=== PATIENT | male | born 1955 | race Caucasian/White ===

== ENCOUNTER 2017-09-06 06:39 | Inpatient (IN) | payer OTHER, SELFPAY ==
[2017-08-23 08:21] VITALS: BMI 31.9
[2017-09-06] VITALS (17 sets, daily range): BP systolic 111–149; BP diastolic 49–75; PULSE 43–67; RESP 14–20; TEMP 35.7–37.1; O2SAT 95–100; BMI 31.9
[2017-09-06] MEDS: LACTATED RINGERS 1,000 ML 42 ML IV (07:30)
--- NOTE | 2017-09-06 07:45 | PM.PREOP ---
Pre-operative Note Interval Note Pre-op Check: History & Physical Reviewed by Physician and Changes
[2017-09-06] MEDS: ACETAMINOPHEN 325 MG TABLET 975 MG PO (07:55)
[2017-09-06] MEDS: CELECOXIB 200 MG CAPSULE PO (07:55)
[2017-09-06] MEDS: CEFAZOLIN 2 GM/100 ML FROZ.PIGGY IV ×2 (07:58→16:27)
--- NOTE | 2017-09-06 08:45 | SUR.OPER ---
Supine on padded OR bed. Pillow under head, arms secured on padded armboards <90 degree abduction. Safety belt across torso. Non-operative leg secured with tape over blanket over lower leg. Operative leg secured in DeMayo/Maurice positioner. Foam padded brace at thigh of operative leg.
[2017-09-06] MEDS: BUPIVACAINE LIPOSOME 266 MG/20 ML VIAL INJ (08:51)
[2017-09-06] MEDS: BUPIVACAINE 0.25% W/ EPI 50 ML VIAL INJ (08:51)
[2017-09-06] MEDS: MORPHINE 4 MG/ML INJ INJ (08:52)
--- NOTE | 2017-09-06 09:51 | DI.RAD.S_ITS ---
PROCEDURE: XR KNEE RT 1TO2V INDICATIONS: post op total knee TECHNIQUE: 2 view(s) of the knee acquired. COMPARISON: None. FINDINGS: Bones: Patient is status post knee joint arthroplasty. Hardware components are in expected positions. Visualized bony structures are intact. Soft tissues: Overlying postoperative changes are noted. IMPRESSION: Normal alignment after right total knee arthroplasty. Dictated by: Jacob Puentes M.D. on 09/06/2017 at 10:38 Approved by: Jacob Puentes M.D. on 09/06/2017 at 10:38
--- NOTE | 2017-09-06 09:57 | P.OP_ITS ---
Operative Date/Time/Diagnoses - Date of procedure: 09/06/17 Time of procedure: 09:45 Pre-op diagnosis: Right knee osteoarthritis Post-op diagnosis: same Procedure & Clinicians Procedure: Right total knee replacement Same procedure as scheduled: Yes Indications: The patient has had progressively worsening right knee pain with radiographic changes consistent with arthritis. Non-operative management has failed and the patient has requested total knee replacement. The risks, benefits and alternatives to surgery were discussed with the patient prior to proceeding. Risks discussed included, but were not limited to, failure to relieve pain, stiffness, infection, nerve damage, deep venous thrombosis, pulmonary embolism, stroke, coma, heart attack, permanent paralysis and , as well as the potential need for eventual revision of the prosthetic. Surgeon: Aj Murdock Feeder Associate: Terra Welch Click Yes if Unassisted: No Anesthesia Type: General, Spinal and Local Operative Notes Findings: Tricompartmental osteoarthritis. Closure Type: primary Specimen(s): none sent Implants & Drains: Implants used in this procedure were manufactured by the [employer] and included the BCS II Journey total knee replacement with a size 6 Oxinium femoral component, a size 6 non porous tibial base plate, a 10 mm crosslinked polyethylene BCS II insert, and a 35 mm oval windy II patella. Applied: implant(s) Estimated Blood Loss (mL): 25 Blood products transfused: none Tourniquet time (min): 53 Procedure in detail: The patient was seen in the pre-operative area, where the patient identified the right knee as the operative site and this was marked with my initials. The patient received pre-operative antibiotics, and was taken to the operating room and placed on the operative table in the supine position. After satisfactory anesthesia, a aircraft time clerk out was performed. The right leg was encircled with a tourniquet about the proximal thigh, and the leg was prepared from the toes to the tourniquet with ChloroPrep in the usual fashion and draped through sterile drapes. The leg was elevated and exsanguinated with Eschmark bandage and the tourniquet inflated to 250 mmHg pressure. The knee was approached through an approximately 18 cm incision centered over the patella and carried into the knee through a medial parapatellar arthrotomy. The anterior osteophytes and soft tissues were removed. The rotational landmarks of Edward's line and the transepicondylar axis were marked on the femur with electrocautery, and intramedullary guide holes for the femur and tibia were created. The distal femoral cut was made in 6 degrees of valgus using the intramedullary guide at the primary cut setting. The proximal tibial cut was then made using the intramedullary guide, taking 7 mm of bone off the less involved medial side. The extension gap was checked and the rotation of the femoral component confirmed with the gap balancing system. The anterior, posterior and chamfer cuts were then made. The posterior osteophytes and soft tissues were then removed. The posterior capsule was injected with part of a mixture of 50 ml 0.25% Marcaine mixed with 20 ml Exparel and 4 mg of morphine for post-operative pain control. The remainder of this mixture was injected into the capsule and subcutaneous tissues during cement curing. The tibia was prepared with the rotation set by an extra medullary guide. Trial tibial and femoral components were then placed and the intercondylar notch cut through the femoral trial. Range of motion was 0-135 degrees, with good stability throughout the range. The patella was then cut to accommodate the patellar prosthetic. There was no need for a lateral release. The trials were then removed, and the femoral hole plugged with a bone plug. The bone was prepared with pulsatile lavage, and dried with a sponge. Cement was applied and the final prosthetics placed. Excess cement was removed during and after cement curing. After confirming there was no extruded cement posteriorly, the final tibial insert was placed. The knee was copiously irrigated and the tourniquet deflated. Hemostasis was obtained. The capsule was closed with interrupted # 2 polyester suture. The subcutaneous layer was closed with 3-0 Vicryl, and the skin with a running 3-0 V-Lock suture and SteriStrips. An Aquacel Ag dressing was applied and the patient was taken to recovery having tolerated the procedure well. Complications: none Condition: stable Disposition: PACU Plan for aftercare: The patient will be maintained on a standard total knee replacement protocol with weight bearing as tolerated. The patient will receive aspirin and sequential compression devices for DVT prophylaxis. The patient will be discharged home when safe for the home environment.
[2017-09-06] MEDS: ACETAMINOPHEN 325 MG TABLET 650 MG PO ×2 (11:09→18:41)
[2017-09-06] MEDS: LACTATED RINGERS 1,000 ML 125 ML IV ×2 (11:09→20:22)
[2017-09-06] MEDS: HYDROCODONE/ACET 5/325 TABLET 1 TAB PO ×2 (12:21→22:41)
--- NOTE | 2017-09-06 13:09 | PC.NURSE ---
Post-op: Arrived to room 218 approx 1030. Wide awake and alert, oriented X3. Denied any pain initially, but reported increasing pain as spinal wears off. Patient and family report he is very sensitive to pain meds, especially Oxycodone (he reportedly turned white and passed out after taking it). We tried Tylenol initially and patient reported only minimal, if any, pain relief. After long discussion we decided to try 1/2 tab Vicodin which he has tolerated without N/V or other complaint. Rates pain down to 4 from 6 in R operative knee. Ice packs refilled and in place. SCD's on, ankle waving encouraged. Tl wrap and dressing to R knee C/D/I, circulation/pulses and cap refill to BLE's WNL. SpO2 on RA 100%, cont pulse ox in place. IVF per order, site in R forearm WNL. He's able to make position changes in bed to relieve pressure, instructed to call for assist with larger position changes. Oriented to room and call light, encouraged to make needs known. Bed alarm on, call light in reach.
[2017-09-06] MEDS: METFORMIN HCL 500 MG TABLET PO (16:27)
--- NOTE | 2017-09-06 16:32 | PT.IIE ---
Current Diagnoses Bilateral primary osteoarthritis of knee (09/06/17) Surgery Performed Operation Date: 09/06/17 07:45 Actual Procedures p Total Knee Arthroplasty(Right) - Aj Murdock MD Surgical History (Last Updated 08/23/17 @ 09:21 by Winifred Henley RN) History of arthroscopy of both knees (Acute) History of arthroscopy of left shoulder (Acute) History of vasectomy (Acute) Medical History (Last Updated 08/23/17 @ 09:21 by Winifred Henley RN) Arthritis (Acute) Diabetes (Acute) Eczema (Acute) GERD (gastroesophageal reflux disease) (Acute) Gout (Acute) HTN (hypertension) (Acute) History of fracture of left ankle (Acute) History of fracture of right ankle (Acute) Hyperlipidemia (Acute) Kidney disease, chronic, stage III (GFR 30-59 ml/min) (Acute) Seasonal allergies (Acute) Sleep apnea with use of continuous positive airway pressure (CPAP) (Acute) Physical Therapy Inpatient Evaluation/Re-Eval M1 PT/OT-IP Prior Functional Status Start: 09/06/17 16:14 Freq: NEEDED Status: Active Protocol: Document 09/06/17 16:15 AB (Rec: 09/06/17 16:32 AB [id number]) Medical Review Prior Functional Status Medical History Reviewed Yes Mobility and Gait Pt stated that he is modified independent with all mobilities and ambulation using SPC outdoors, occasionally uses SPC indoors but most of the time without AD Social History Household Members spouse children Living Arrangements House Number of Floors (Floors) Two Floors Number of Stairs To Enter/Railing? 2 steps to enter with L deck/ patio post pt stays on main level of the house Home Environment Walk in Shower Home Equipment Front Wheel Walker Straight Cane Raised Toilet Seat Without Armrests Shower Seat without Backrest Employment Status Retired Additional Social History Comment spouse and daughters will assist pt at home M2 PT-IP Current Condition Start: 09/06/17 16:14 Freq: NEEDED Status: Active Protocol: Document 09/06/17 16:15 AB (Rec: 09/06/17 16:32 AB [id number]) Physical Therapy Current Condition Current Condition Evaluation Date 09/06/17 Treatment Diagnosis s/p R TKA Onset Date 09/06/17 Weight Bearing Status Weight Bearing Status Weight Bear as Tolerated M3 PT-IP Subjective Start: 09/06/17 16:14 Freq: NEEDED Status: Active Protocol: Document 09/06/17 16:15 AB (Rec: 09/06/17 16:32 AB [id number]) Subjective Physical Therapy Visit Type Type Initial Evaluation Visit Start Time 14:05 Visit Stop Time 14:58 Total Visit Minutes 53 Number of NE[facility] E[employer]ERN ARCHAEOLOGY LECTURER Visits 0 Physical Therapy Visit Comments Patient Comments pt agreeable to do therapy Therapy Pain Assessment Pain When Pain Assessed At Rest Pain Present Pain Present Pain Reported Location Right Knee Intensity 3 Scale Used Numeric (1 - 10) Pain Management Techniques Apply Cold Re-positioning M4 PT-IP Mobility and Gait Start: 09/06/17 16:14 Freq: NEEDED Status: Active Protocol: Document 09/06/17 16:15 AB (Rec: 09/06/17 16:32 AB [id number]) PT-Bed Mobility Assessment Supine to Sit Supine to Sit Standby Assistance Sit to Supine Sit to Supine Maximum Assistance PT-Transfer Assessment Sit to and From Stand Sit to and from Stand Moderate Assistance Equipment Transfer Assistive Device Gait Belt Front Wheeled Walker Orthotic/Prosthetic Devices or Brace: Yes Gait Assessment Gait Gait Assistance Required: Moderate Assistance Distance (Feet) (feet) 12 Able to Maintain Weight Bearing Status Yes During Gait Assistive Devices Assistive Device Gait Belt Front Wheeled Walker Orthotic/Prosthetic Devices or Brace: Yes Gait Deviations General Gait Pattern Antalgic Decreased Stride Length Decreased Feet Clearance Factors Limiting Gait Function Factors Limiting Gait Function Decreased Activity Tolerance Decreased Strength Pain Poor Balance Comments Gait Comments Pt has h/o L ankle fracture s/ p repair and has been using a L solid ankle brace for ~ 2 months. stated that he missed his f/u appointment for his ankle last tuesday. pt brought his ankle brace from home. pt with c/o dizziness during ambulation and has to sit back on EOB. BP prior to tx: 143/ 55 after ambulation: 113/53 PT-Balance Assessment Sitting Balance and Reactions Static Sitting Balance Ability Good Dynamic Sitting Balance Ability Good Standing Balance and Reactions Static Standing Balance Ability Fair Dynamic Standing Balance Ability Fair M5 PT-IP Objective Assessments Start: 09/06/17 16:14 Freq: NEEDED Status: Active Protocol: Document 09/06/17 16:15 AB (Rec: 09/06/17 16:32 AB [id number]) Orientation Orientation/Cognition Level of Alertness Alert Orientation Name Age Birthday Month Date Year Day of Week Place Situation Gross Range of Motion Lower Extremity ROM Assessment Right Impaired Strength Lower Extremity Strength Assessment Bilaterally Impaired Comments Strength Comments RLE weaker than LLE RLE 3+/5 LLE 4-/5 Sensation Assessment Sensation Sensation Description Numbness Comments Sensation Comments still c/o numbness on buttocks M6 PT-IP Treatment Start: 09/06/17 16:14 Freq: NEEDED Status: Active Protocol: Document 09/06/17 16:15 AB (Rec: 09/06/17 16:32 AB [id number]) Physical Therapy Treatment Exercises Exercises Ankle Pumps Quad Sets Education Education Provided Precautions Weight Bearing Status Post-Op Packet Safety M7 PT-IP Assessment and Plan Start: 09/06/17 16:14 Freq: NEEDED Status: Active Protocol: Document 09/06/17 16:15 AB (Rec: 09/06/17 16:32 AB [id number]) PT Summary Assessment and Plan Potential Rehabilitation Potential Good Status of Condition at Evaluation Evolving Summary Impairments Pain ROM Strength Balance Coordination Sensation Bed Mobility Transfers Gait Activity Tolerance Assessment Summary pt just had surgery this morning and with c/o dizziness during ambulation limiting mobility. will continue to assess but pt will likely progress during hospital stay. pt has his family to assist him at home. caregiver training will be conducted if appropriate and stair climbing training will be completed prior to d/c. Goals Bed Mobility Goal Standby Assistance Transfer Goal Standby Assistance Gait Goal Standby Assistance Gait Distance 100 Other Goals up/down 2 steps using FWW SBA Days to Meet Goals 3 Frequency of Treatment Frequency Of Treatment Twice a Day Treatment Plan Physical Therapy Treatment Plan Bed Mobility Training Transfer Training Gait Training Therapeutic Exercise Balance Retraining Post Op Education Discharge Planning Hot or Cold Pack Neuromuscular Re-ed Coordination Retraining Manual Therapy Other Recommendations and Next Treatment ambulation, caregiver training Focus , stair climbing Recommendations To Nursing Amount of Assist Needed 1 Person Assist Discharge Recommendations PT Discharge Recommendations Home with Assistance Outpatient PT Provider Visit Care Team Role Provider Type María Hester MD Family Provider Non-Staff Primary Care Provider Specialty: Medical Aj Murdock MD Admit Provider Physician Attending Provider Specialty: Orthopedic Surgery
[2017-09-06] MEDS: DOCUSATE 100 MG CAPSULE PO (20:23)
[2017-09-06] MEDS: FLUTICASONE 120 SPRAY/16 GM SPRAY.SUSP NASAL (20:23)
[2017-09-06] MEDS: ATORVASTATIN 20 MG TABLET PO (20:23)
[2017-09-06] MEDS: ASPIRIN EC 81 MG TABLET PO (20:23)
[2017-09-07] MEDS: CEFAZOLIN 2 GM/100 ML FROZ.PIGGY IV (00:51)
[2017-09-07] MEDS: LACTATED RINGERS 1,000 ML 125 ML IV (05:39)
[2017-09-07 05:58] LABS: Hematocrit 31.5 % (41-53); Hemoglobin 10.8 g/dL (13.5-17.5)
[2017-09-07] MEDS: HYDROCODONE/ACET 5/325 TABLET 1 TAB PO ×3 (06:07→16:26)
[2017-09-07 06:11] VITALS: BP 148/90; PULSE 64; RESP 16; TEMP 36.9; O2SAT 100
--- NOTE | 2017-09-07 07:37 | P.PN_ITS ---
Subjective Date Patient Seen: 09/07/17 Time Patient Seen: 07:33 Interval history: The patient is postop day 1 from a right total knee replacement. He has complaints of mild discomfort in the right thigh but minimal knee pain. He was able to get up with physical therapy and walk around the room yesterday afternoon but did get dizzy at the end of this. Exam Vital Signs (past 8 hours): Vital Signs - 8 hr 3 09/06/17 23:43 09/07/17 06:11 Temperature 98.7 F 98.5 F Pulse Rate 67 64 Respiratory Rate 16 16 Blood Pressure 149/56 H 148/90 H Pulse Oximetry 96 100 Pulse Oximetry 100 Oxygen Delivery Method Room Air Oxygen Flow Rate 0 Narrative Exam Narrative: On physical examination the right knee wound is dressed. There is no drainage on the bandage. Calf is soft. Light touch and motion are intact in the right lower extremity. Objective Labs Result Diagrams: 09/07/17 05:44 Labs: Laboratory Results - last 24 hr 09/07/17 05:44 Hgb 10.8 L Hct 31.5 L Assessment & Plan Post-op Postoperative Procedures Operation Date: 09/06/17 07:45 Actual Procedures Side Surgeon p Total Knee Arthroplasty Right Aj Murdock MD Postoperative day: 1 Postoperative status: doing well and anemia (The patient has a mild post hemorrhagic anemia. This is asymptomatic.) Postoperative plan: routine post-op care (The patient is doing well. We will have additional physical therapy today. If they make enough progress they can go home. If not they will be maintained in the hospital as an inpatient.) Time Spent With Patient less than 15 minutes Quality VTE Deep Vein Thrombosis/Pulmonary Embolism Present on Admission: No
[2017-09-07 07:50] VITALS: BP 141/57; PULSE 63; RESP 18; TEMP 36.6; O2SAT 97
--- NOTE | 2017-09-07 08:09 | PM.DS.1 ---
History of Present Illness Date Patient Seen: 09/07/17 Time Patient Seen: 08:09 Chief complaint: [id number] RIGHT TOTAL KNEE ARTHROPLASTY Narrative: Pain is mild. No fever chills. No nausea vomiting. Patient walked in room with physical therapy yesterday. Patient able to urinate. Patient feels ready to be discharged home. Patient's is home to the system. Discharge Providers Date of admission: 09/06/17 06:39 Primary care physician: María Hester MD Consults: 09/06/17 10:32 Consult to Discharge Planning Routine Comment: Consult to Physical Therapy Evaluate & Treat Comment: Physician Instructions: postop TKA protocol Discharge provider: Dimitris Menon PA-C Summary Discharge Diagnosis: Status post right total knee arthroplasty Hospital Course: patient has had progressively worsening right knee pain with radiographic changes consistent with arthritis. Non-operative management has failed and the patient has requested total knee replacement. The risks, benefits and alternatives to surgery were discussed with the patient prior to proceeding. Risks discussed included, but were not limited to, failure to relieve pain, stiffness, infection, nerve damage, deep venous thrombosis, pulmonary embolism, stroke, coma, heart attack, permanent paralysis and , as well as the potential need for eventual revision of the prosthetic. Surgeon: Aj Murdock Negative Stripper: Terra Welch Click Yes if Unassisted: No Anesthesia Type: General, Spinal and Local Patient underwent right total knee arthroplasty. Patient back in his room recovering well and is in stable condition. Patient has mild post hemorrhagic anemia. This is asymptomatic. Status at Discharge Functional status at discharge: uses cane/walker Overall status at discharge: other (Stable status post right total knee arthroplasty) Time Spent with Patient Less than 30 minutes Exam Vital Signs (past 8 hours): Vital Signs - 8 hr 09/07/17 06:11 Temperature 98.5 F Pulse Rate 64 Respiratory Rate 16 Blood Pressure 148/90 H Pulse Oximetry 100 Pulse Oximetry 100 Oxygen Delivery Method Room Air Oxygen Flow Rate 0 Narrative Exam Narrative: Patient is alert and oriented. Patient resting comfortably in bed in no apparent distress. Right knee dressing is clean, dry and intact. Neurovascular status is intact to the distal right lower extremity. Objective Labs Result Diagrams: 09/07/17 05:44 Labs: Laboratory Results - last 24 hr 09/07/17 05:44 Hgb 10.8 L Hct 31.5 L Discharge Plan Discharge Plan Patient Disposition: Home, Self-Care Discharge comment: DC today after PT Discharge Med Rec/Prescriptions Prescriptions: No Action metformin 500 mg Tablet 500 mg PO BID RF: 0 atorvastatin 20 mg Tablet 20 mg PO BEDTIME RF: 0 cetirizine [Zyrtec] 10 mg Tablet 10 mg PO DAILY PRN (Reason: Allergies) RF: 0 lisinopril 20 mg Tablet 20 mg PO QAM RF: 0 aspirin [Aspir-81] 81 mg Tablet,Delayed Release (Dr/Ec) 81 mg PO QAM RF: 0 ranitidine HCl 150 mg Capsule 150 mg PO BID RF: 0 fluticasone 50 mcg/actuation Hooks,Suspension 1 spray INTRANASAL BEDTIME RF: 0 atenolol 50 mg Tablet 50 mg PO QAM RF: 0 vitamin E 1,000 units PO DAILY RF: 0 ascorbic acid (vitamin C) 1,000 units PO DAILY RF: 0 Follow up/Referrals: Aj Murdock MD [Physician] - (Follow up 5-7 days with [facility]) María Hester MD [Primary Care Provider] - Provider Discharge Instructions Diet: Diet as Tolerated Activity: WBAT, [facility] protocol Cold/Heat Therapy: as needed Other treatments: Patient will continue aspirin b.i.d.. Tylenol 1000 mg 3 times daily Patient has prescription for pain medicine at home to be taken as directed. Wound Care Report to your healthcare provider any signs of infection, such as:: chills, fever, increased pain and unusual drainage Discharge Data Primary Care Provider: María Hester Attending Provider: Aj Murdock Admit Date/Time: 09/06/17 06:39 Quality VTE Deep Vein Thrombosis/Pulmonary Embolism Present on Admission: No
--- NOTE | 2017-09-07 08:13 | P.DS_ITS ---
History of Present Illness Date Patient Seen: 09/07/17 Time Patient Seen: 08:09 Chief complaint: [id number] RIGHT TOTAL KNEE ARTHROPLASTY Narrative: Pain is mild. No fever chills. No nausea vomiting. Patient walked in room with physical therapy yesterday. Patient able to urinate. Patient feels ready to be discharged home. Patient's is home to the system. Discharge Providers Date of admission: 09/06/17 06:39 Primary care physician: María Hester MD Consults: 09/06/17 10:32 Consult to Discharge Planning Routine Comment: Consult to Physical Therapy Evaluate & Treat Comment: Physician Instructions: postop TKA protocol Discharge provider: Dimitris Menon PA-C Summary Discharge Diagnosis: Status post right total knee arthroplasty Hospital Course: patient has had progressively worsening right knee pain with radiographic changes consistent with arthritis. Non-operative management has failed and the patient has requested total knee replacement. The risks, benefits and alternatives to surgery were discussed with the patient prior to proceeding. Risks discussed included, but were not limited to, failure to relieve pain, stiffness, infection, nerve damage, deep venous thrombosis, pulmonary embolism, stroke, coma, heart attack, permanent paralysis and , as well as the potential need for eventual revision of the prosthetic. Surgeon: Aj Murdock Picker / Packer: Terra Welch Click Yes if Unassisted: No Anesthesia Type: General, Spinal and Local Patient underwent right total knee arthroplasty. Patient back in his room recovering well and is in stable condition. Patient has mild post hemorrhagic anemia. This is asymptomatic. Status at Discharge Functional status at discharge: uses cane/walker Overall status at discharge: other (Stable status post right total knee arthroplasty) Time Spent with Patient Less than 30 minutes Exam Vital Signs (past 8 hours): Vital Signs - 8 hr 3 09/07/17 06:11 Temperature 98.5 F Pulse Rate 64 Respiratory Rate 16 Blood Pressure 148/90 H Pulse Oximetry 100 Pulse Oximetry 100 Oxygen Delivery Method Room Air Oxygen Flow Rate 0 Narrative Exam Narrative: Patient is alert and oriented. Patient resting comfortably in bed in no apparent distress. Right knee dressing is clean, dry and intact. Neurovascular status is intact to the distal right lower extremity. Objective Labs Result Diagrams: 09/07/17 05:44 Labs: Laboratory Results - last 24 hr 09/07/17 05:44 Hgb 10.8 L Hct 31.5 L Discharge Plan Discharge Plan Patient Disposition: Home, Self-Care Discharge comment: DC today after PT Discharge Med Rec/Prescriptions Prescriptions: No Action metformin 500 mg Tablet 500 mg PO BID RF: 0 atorvastatin 20 mg Tablet 20 mg PO BEDTIME RF: 0 cetirizine [Zyrtec] 10 mg Tablet 10 mg PO DAILY PRN (Reason: Allergies) RF: 0 lisinopril 20 mg Tablet 20 mg PO QAM RF: 0 aspirin [Aspir-81] 81 mg Tablet,Delayed Release (Dr/Ec) 81 mg PO QAM RF: 0 ranitidine HCl 150 mg Capsule 150 mg PO BID RF: 0 fluticasone 50 mcg/actuation Yeoman,Suspension 1 spray INTRANASAL BEDTIME RF: 0 atenolol 50 mg Tablet 50 mg PO QAM RF: 0 vitamin E 1,000 units PO DAILY RF: 0 ascorbic acid (vitamin C) 1,000 units PO DAILY RF: 0 Follow up/Referrals: Aj Murdock MD [Physician] - (Follow up 5-7 days with [facility]) María Hester MD [Primary Care Provider] - Provider Discharge Instructions Diet: Diet as Tolerated Activity: WBAT, [facility] protocol Cold/Heat Therapy: as needed Other treatments: Patient will continue aspirin b.i.d.. Tylenol 1000 mg 3 times daily Patient has prescription for pain medicine at home to be taken as directed. Wound Care Report to your healthcare provider any signs of infection, such as:: chills, fever, increased pain and unusual drainage Discharge Data Primary Care Provider: María Hester Attending Provider: Aj Murdock Admit Date/Time: 09/06/17 06:39 Quality VTE Deep Vein Thrombosis/Pulmonary Embolism Present on Admission: No
[2017-09-07] MEDS: DOCUSATE 100 MG CAPSULE PO ×2 (08:31→21:26)
[2017-09-07] MEDS: ASPIRIN EC 81 MG TABLET PO ×2 (08:31→21:25)
[2017-09-07] MEDS: METFORMIN HCL 500 MG TABLET PO ×2 (08:31→17:07)
[2017-09-07] MEDS: LISINOPRIL 20 MG TABLET PO (08:31)
[2017-09-07] MEDS: ATENOLOL 50 MG TABLET PO (08:31)
[2017-09-07] MEDS: ASCORBIC ACID 500 MG TABLET 1000 MG PO (08:31)
[2017-09-07] MEDS: ONDANSETRON 4 MG ODT PO ×2 (09:19→16:09)
[2017-09-07] MEDS: hydrOXYzine pamoate 25 MG CAPSULE PO (10:38)
--- NOTE | 2017-09-07 10:40 | PT.IPTN ---
Current Diagnoses Bilateral primary osteoarthritis of knee (09/06/17) Surgery Performed Operation Date: 09/06/17 07:45 Actual Procedures p Total Knee Arthroplasty(Right) - Aj Murdock MD Physical Therapy Treatment Note M2 PT-IP Current Condition Start: 09/06/17 16:14 Freq: NEEDED Status: Active Protocol: Document 09/06/17 16:15 AB (Rec: 09/06/17 16:32 AB [id number]) Physical Therapy Current Condition Current Condition Evaluation Date 09/06/17 Treatment Diagnosis s/p R TKA Onset Date 09/06/17 Weight Bearing Status Weight Bearing Status Weight Bear as Tolerated M3 PT-IP Subjective Start: 09/06/17 16:14 Freq: NEEDED Status: Active Protocol: Document 09/07/17 09:38 CLB (Rec: 09/07/17 10:40 CLB [id number]) Subjective Physical Therapy Visit Type Type Treatment Note Visit Start Time 09:38 Visit Stop Time 10:20 Total Visit Minutes 42 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 Therapy Pain Assessment Pain When Pain Assessed During Mobility Pain Present Pain Present Pain Reported Location Right Knee Intensity 5 Scale Used Numeric (1 - 10) Pain Management Techniques Apply Cold Re-positioning M4 PT-IP Mobility and Gait Start: 09/06/17 16:14 Freq: NEEDED Status: Active Protocol: Document 09/07/17 09:38 CLB (Rec: 09/07/17 10:40 CLB [id number]) PT-Bed Mobility Assessment Supine to Sit Supine to Sit Standby Assistance Scooting Scooting to Edge of Bed Standby Assistance PT-Transfer Assessment Sit to and From Stand Sit to and from Stand Contact Guard Assistance Equipment Transfer Assistive Device Gait Belt Front Wheeled Walker Orthotic/Prosthetic Devices or Brace: Yes Transfers Transfer Destination Chair Wheelchair Transfer Ability Level of Assist Contact Guard Assistance Comments Mobility Comments Pt improving with bed mobility and able to use SPC to hook RLE OOB with Min A to support leg until foot is on floor. Daughter and assisted pt. Gait Assessment Gait Gait Assistance Required: Contact Guard Assist Distance (Feet) (feet) 60 Able to Maintain Weight Bearing Status Yes During Gait Assistive Devices Assistive Device Gait Belt Front Wheeled Walker Orthotic/Prosthetic Devices or Brace: Yes Gait Deviations General Gait Pattern Antalgic Decreased Stride Length Decreased Feet Clearance Factors Limiting Gait Function Factors Limiting Gait Function Decreased Activity Tolerance Decreased Strength Pain Poor Balance Comments Gait Comments Pt wore ankle brace and shoes for ambulation. Pt increased distance with no c/o dizziness until returning to room in . BP was 103/54, then returned to 143/67 after sitting for 5 minutes. Stair Climbing Assessment Comments Stair Climbing Comments Unable to perform due to BP after gait. M5 PT-IP Objective Assessments Start: 09/06/17 16:14 Freq: NEEDED Status: Active Protocol: Document 09/06/17 16:15 AB (Rec: 09/06/17 16:32 AB [id number]) Orientation Orientation/Cognition Level of Alertness Alert Orientation Name Age Birthday Month Date Year Day of Week Place Situation Gross Range of Motion Lower Extremity ROM Assessment Right Impaired Strength Lower Extremity Strength Assessment Bilaterally Impaired Comments Strength Comments RLE weaker than LLE RLE 3+/5 LLE 4-/5 Sensation Assessment Sensation Sensation Description Numbness Comments Sensation Comments still c/o numbness on buttocks M6 PT-IP Treatment Start: 09/06/17 16:14 Freq: NEEDED Status: Active Protocol: Document 09/07/17 09:38 CLB (Rec: 09/07/17 10:40 CLB [id number]) Physical Therapy Treatment Exercises Exercises Gluteal Sets Straight Leg Raises Short Arc Quads Seated Knee Flexion/Extension Education Education Provided Precautions Weight Bearing Status Post-Op Packet Safety M7 PT-IP Assessment and Plan Start: 09/06/17 16:14 Freq: NEEDED Status: Active Protocol: Document 09/07/17 09:38 CLB (Rec: 09/07/17 10:40 CLB [id number]) PT Summary Assessment and Plan Potential Rehabilitation Potential Good Summary Impairments Pain ROM Strength Balance Coordination Sensation Bed Mobility Transfers Gait Activity Tolerance Assessment Summary Family assisting pt during caregiver training. and daughter assisted pt OOB, to toilet and ambulation. Pt continues to have some dizziness at times during treatment. Pt did not have dizziness while ambulating but after standing from WC and ambulating to Chair BP was 103 /54 after ambulation then returned to 143/67. Pt not safe to trial stairs. Goals Bed Mobility Goal Standby Assistance Transfer Goal Standby Assistance Gait Goal Standby Assistance Gait Distance 100 Other Goals up/down 2 steps using FWW SBA Days to Meet Goals 3 Frequency of Treatment Frequency Of Treatment Twice a Day Treatment Plan Physical Therapy Treatment Plan Bed Mobility Training Transfer Training Gait Training Therapeutic Exercise Balance Retraining Post Op Education Discharge Planning Hot or Cold Pack Neuromuscular Re-ed Coordination Retraining Manual Therapy Other Recommendations and Next Treatment ambulation, stair training Focus Recommendations To Nursing Amount of Assist Needed 1 Person Assist Discharge Recommendations PT Discharge Recommendations Home with Assistance Outpatient PT
[2017-09-07 12:53] VITALS: BP 145/70; PULSE 59; RESP 18; TEMP 36.7; O2SAT 99
--- NOTE | 2017-09-07 15:52 | CM.DANOTE ---
DCP Assessment: Pt is a 61 yo male, resident of [place]. Pt admitted for a scheduled knee surgery by Dr Murdock. Pt's PCP is Dr Hester; Insurance is [employer]. Reviewed chart. Pt lives w/his spouse and two dtrs. Pt is mostly indp in all he does, works, typically no use of AD. Pt is expecting to DC home w/assist from his family and PT agrees, pt should be able to safely DC home w/outpt PT follow up. CG training occured today and was successful w/spouse and dtr. No barriers expected to safe DC home, possibly today. Following closely for any DC needs or concerns that might arise. ARIANA Garcia
[2017-09-07 16:30] VITALS: BP 135/65; PULSE 72; RESP 18; TEMP 37; O2SAT 100
[2017-09-07] MEDS: LORATADINE 10 MG TABLET PO (17:07)
--- NOTE | 2017-09-07 17:19 | PT.IPTN ---
Current Diagnoses Bilateral primary osteoarthritis of knee (09/06/17) Surgery Performed Operation Date: 09/06/17 07:45 Actual Procedures p Total Knee Arthroplasty(Right) - Aj Murdock MD Physical Therapy Treatment Note M2 PT-IP Current Condition Start: 09/06/17 16:14 Freq: NEEDED Status: Active Protocol: Document 09/06/17 16:15 AB (Rec: 09/06/17 16:32 AB [id number]) Physical Therapy Current Condition Current Condition Evaluation Date 09/06/17 Treatment Diagnosis s/p R TKA Onset Date 09/06/17 Weight Bearing Status Weight Bearing Status Weight Bear as Tolerated M3 PT-IP Subjective Start: 09/06/17 16:14 Freq: NEEDED Status: Active Protocol: Document 09/07/17 17:11 AB (Rec: 09/07/17 17:19 AB [id number]) Subjective Physical Therapy Visit Type Type Treatment Note Visit Start Time 15:05 Visit Stop Time 16:18 Total Visit Minutes 73 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 Physical Therapy Visit Comments Patient Comments stated that he is not ready to go home Therapy Pain Assessment Pain When Pain Assessed At Rest Pain Present Pain Present Pain Reported Location Right Knee Intensity 3 Scale Used Numeric (1 - 10) Pain Management Techniques Apply Cold M4 PT-IP Mobility and Gait Start: 09/06/17 16:14 Freq: NEEDED Status: Active Protocol: Document 09/07/17 17:11 AB (Rec: 09/07/17 17:19 AB [id number]) PT-Bed Mobility Assessment Sit to Supine Sit to Supine Minimal Assistance PT-Transfer Assessment Sit to and From Stand Sit to and from Stand Contact Guard Assistance Minimal Assistance Transfers Transfer Destination Toilet Transfer Technique pt ambulated to the toilet Transfer Ability Level of Assist Minimal Assistance Comments Mobility Comments pt completed sit <>stand x 4 reps requiring min A and cues for techniques. spouse assisted pt with toilet transfers. Gait Assessment Gait Gait Assistance Required: Contact Guard Assist Distance (Feet) (feet) 40 Able to Maintain Weight Bearing Status Yes During Gait Assistive Devices Assistive Device Gait Belt Front Wheeled Walker Orthotic/Prosthetic Devices or Brace: No Gait Deviations General Gait Pattern Antalgic Decreased Stride Length Decreased Feet Clearance Factors Limiting Gait Function Factors Limiting Gait Function Decreased Activity Tolerance Decreased Strength Limited Range of Motion Pain Poor Balance Poor Safety Awareness Comments Gait Comments BP sitting on chair prior to tx: 152/74; standing for ~ 2min : 146/75 BP after ambulation to the toilet : 125/74 BP after ambulation in hallway : 136/80 Stair Climbing Assessment Comments Stair Climbing Comments unable to complete stair climbing due to pt's decrease activity tolerance M5 PT-IP Objective Assessments Start: 09/06/17 16:14 Freq: NEEDED Status: Active Protocol: Document 09/06/17 16:15 AB (Rec: 09/06/17 16:32 AB [id number]) Orientation Orientation/Cognition Level of Alertness Alert Orientation Name Age Birthday Month Date Year Day of Week Place Situation Gross Range of Motion Lower Extremity ROM Assessment Right Impaired Strength Lower Extremity Strength Assessment Bilaterally Impaired Comments Strength Comments RLE weaker than LLE RLE 3+/5 LLE 4-/5 Sensation Assessment Sensation Sensation Description Numbness Comments Sensation Comments still c/o numbness on buttocks M6 PT-IP Treatment Start: 09/06/17 16:14 Freq: NEEDED Status: Active Protocol: Document 09/07/17 17:11 AB (Rec: 09/07/17 17:19 AB [id number]) Physical Therapy Treatment Exercises Exercises Heel Slides Education Education Provided Precautions Weight Bearing Status Post-Op Packet Safety Other Treatments Other Treatment Performed educated pt and family regarding equipement needs ( toilet safety rail or 3 in one commode) educated on HEP M7 PT-IP Assessment and Plan Start: 09/06/17 16:14 Freq: NEEDED Status: Active Protocol: Document 09/07/17 17:11 AB (Rec: 09/07/17 17:19 AB [id number]) PT Summary Assessment and Plan Potential Rehabilitation Potential Good Summary Impairments Pain ROM Strength Balance Coordination Sensation Bed Mobility Transfers Gait Activity Tolerance Progress Towards Goals Slow Progress due to Medical Issues Assessment Summary pt progressing slowly but continues to have decrease in BP after standing/walking for a few minutes. family does not think that pt is safe to d /c today. pt unable to complete stair climbing training due to decrease activity tolerance. set up further caregiver training and stair training for tomorrow at 9 am Goals Bed Mobility Goal Standby Assistance Transfer Goal Standby Assistance Gait Goal Standby Assistance Gait Distance 100 Other Goals up/down 2 steps using FWW SBA Days to Meet Goals 3 Frequency of Treatment Frequency Of Treatment Twice a Day Treatment Plan Physical Therapy Treatment Plan Bed Mobility Training Transfer Training Gait Training Therapeutic Exercise Balance Retraining Post Op Education Discharge Planning Hot or Cold Pack Neuromuscular Re-ed Coordination Retraining Manual Therapy Other Recommendations and Next Treatment ambulation, stair training Focus Recommendations To Nursing Amount of Assist Needed 1 Person Assist Discharge Recommendations PT Discharge Recommendations Home with Assistance Outpatient PT
[2017-09-07 20:00] VITALS: BP 157/80; PULSE 83; RESP 20; TEMP 37.2; O2SAT 100
[2017-09-07] MEDS: ATORVASTATIN 20 MG TABLET PO (21:25)
[2017-09-07] MEDS: FLUTICASONE 120 SPRAY/16 GM SPRAY.SUSP NASAL (21:26)
[2017-09-07 23:55] VITALS: BP 159/75; PULSE 70; RESP 18; TEMP 36.9; O2SAT 98
[2017-09-07] MEDS: ACETAMINOPHEN 325 MG TABLET 650 MG PO (23:56)
[2017-09-08 00:24] VITALS: O2SAT 96
--- NOTE | 2017-09-08 00:25 | PC.NURSE ---
Addendum entered by Romana Aburto R.N. 09/08/17 06:00: Slept well most of night. States pain this morning is only 2/10; medicated with scheduled Tylenol. SCD's removed for next hour as per protocol. Original Note: Patient is alert and oriented. Breath sounds CTA with RA sat of 96%; using CPAP at night. HRR. Denies nausea, reportedly earlier nausea due to narcotics. BT hypoactive but states he is passing flatus. Denies dysuria, frequency, urgency or incontinence and is using urinal at bedside. Able to move self in bed. Tl dressing to right knee is CDI. CMS intact bilaterally. SCD's are on. Fall risk score is high and bed alarm is activated. Complains of 3/10 pain but wanted only scheduled Tylenol at this time.
[2017-09-08 05:36] VITALS: BP 148/77; PULSE 63; RESP 16; TEMP 36.2; O2SAT 97
[2017-09-08] MEDS: ACETAMINOPHEN 325 MG TABLET 650 MG PO ×3 (05:56→17:59)
--- NOTE | 2017-09-08 07:13 | P.PN_ITS ---
Subjective Date Patient Seen: 09/08/17 Time Patient Seen: 07:10 Interval history: The patient reports he slept well. He reports decreasing sensations of dizziness with mobilization. Pain is well controlled on Tylenol only. Exam Vital Signs (past 8 hours): Vital Signs - 8 hr 3 09/07/17 23:55 09/08/17 00:24 09/08/17 05:36 Temperature 98.5 F 97.2 F L Pulse Rate 70 63 Respiratory Rate 18 16 Blood Pressure 159/75 H 148/77 H Pulse Oximetry 98 96 97 Pulse Oximetry 97 Oxygen Delivery Method Room Air Oxygen Flow Rate 0 Narrative Exam Narrative: Right knee wound is dressed. There is no drainage on the bandage. Calf is soft. Light touch and motion are intact in the right lower extremity. Objective Labs Result Diagrams: 09/07/17 05:44 Assessment & Plan Post-op Postoperative Procedures Operation Date: 09/06/17 07:45 Actual Procedures Side Surgeon p Total Knee Arthroplasty Right Aj Murdock MD Postoperative day: 2 Postoperative status: doing well (The patient is progressing well after total knee replacement. He initially had orthostatic hypotension. This has improved. He likely will be ready for discharge home today as per yesterday's orders.) and anemia (He has a mild post hemorrhagic anemia. This does not require transfusion.) Postoperative plan: routine post-op care and discharge (He will be discharged today as per the discharge orders entered yesterday.) Time Spent With Patient less than 15 minutes Quality VTE Deep Vein Thrombosis/Pulmonary Embolism Present on Admission: No
[2017-09-08 08:11] VITALS: BP 133/74; PULSE 66; RESP 16; TEMP 36.2; O2SAT 95
[2017-09-08] MEDS: DOCUSATE 100 MG CAPSULE PO ×2 (08:29→20:25)
[2017-09-08] MEDS: METFORMIN HCL 500 MG TABLET PO ×2 (08:29→16:57)
[2017-09-08] MEDS: ASPIRIN EC 81 MG TABLET PO ×2 (08:29→20:25)
[2017-09-08] MEDS: ATENOLOL 50 MG TABLET PO (08:29)
[2017-09-08] MEDS: SODIUM CHLORIDE 0.9% FLUSH 10 ML IV ×2 (08:30→20:25)
[2017-09-08] MEDS: ASCORBIC ACID 500 MG TABLET 1000 MG PO (08:30)
[2017-09-08] MEDS: LISINOPRIL 20 MG TABLET PO (08:30)
--- NOTE | 2017-09-08 10:55 | CM.DPNOTE ---
DC Note: Met w/pt, his , and dtr this morning, explained role. Pt feeling confident about going home today and expects no barriers to safe DC home w/family to assist. PT has cleared pt for home w/outpt f/u. Cg training has been conducted and pt has the DME needed at home. PRANAV
--- NOTE | 2017-09-08 11:20 | PC.NURSE ---
1015 Pt returned to room via w/c by the PT, Pt was to demonstrate going up the steps with PT, Pt became dizzy, states everything went white, Pt was assisted to the w/c by PT and another RN. Returned to the bed, Pt appeared pale. Family at bedside. 1020 b/p 113/[address] 57. [address] Murdock to report, Pt was planned to dc to home today. Dr Larson covering today. Consult in for Hospitalist to follow this Pt case. Dr Silas Santiago notified. 1100 Pt is awake, alert, calm. resting quietly in bed. no c/o. family at bedside.
--- NOTE | 2017-09-08 11:47 | PT.IPTN ---
Current Diagnoses Bilateral primary osteoarthritis of knee (09/06/17) Surgery Performed Operation Date: 09/06/17 07:45 Actual Procedures p Total Knee Arthroplasty(Right) - Aj Murdock MD Physical Therapy Treatment Note M2 PT-IP Current Condition Start: 09/06/17 16:14 Freq: NEEDED Status: Active Protocol: Document 09/06/17 16:15 AB (Rec: 09/06/17 16:32 AB [id number]) Physical Therapy Current Condition Current Condition Evaluation Date 09/06/17 Treatment Diagnosis s/p R TKA Onset Date 09/06/17 Weight Bearing Status Weight Bearing Status Weight Bear as Tolerated M3 PT-IP Subjective Start: 09/06/17 16:14 Freq: NEEDED Status: Active Protocol: Document 09/08/17 11:33 AB (Rec: 09/08/17 11:47 AB [id number]) Subjective Physical Therapy Visit Type Type Treatment Note Visit Start Time 09:28 Visit Stop Time 10:33 Total Visit Minutes 65 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 Physical Therapy Visit Comments Patient Comments pt agreeable to do therapy Therapy Pain Assessment Pain When Pain Assessed At Rest Pain Present Pain Present Pain Reported Location Right Knee Intensity 3 Scale Used Numeric (1 - 10) M4 PT-IP Mobility and Gait Start: 09/06/17 16:14 Freq: NEEDED Status: Active Protocol: Document 09/08/17 11:33 AB (Rec: 09/08/17 11:47 AB [id number]) PT-Bed Mobility Assessment Supine to Sit Supine to Sit Standby Assistance PT-Transfer Assessment Sit to and From Stand Sit to and from Stand Standby Assistance Equipment Transfer Assistive Device Gait Belt Front Wheeled Walker Gait Assessment Gait Gait Assistance Required: Standby Assistance Contact Guard Assist Distance (Feet) (feet) 75 Able to Maintain Weight Bearing Status Yes During Gait Assistive Devices Assistive Device Gait Belt Front Wheeled Walker Orthotic/Prosthetic Devices or Brace: Yes Gait Deviations General Gait Pattern Antalgic Decreased Stride Length Decreased Feet Clearance Factors Limiting Gait Function Factors Limiting Gait Function Decreased Activity Tolerance Decreased Strength Pain Poor Balance Poor Safety Awareness Comments Gait Comments caregiver training conducted and was able to assist pt with transfers and ambulation. Stair Climbing Assessment Evaluation Level of Assist On Stairs Maximal Assistance 1 Person Assistance Devices Stair Climbing Assistive Devices Front Wheel Walker Left Railing Right Railing Technique/Endurance Stair Climbing Direction Ascend Stair Climbing Technique Step to Step Number of Steps Climbed 3 Query Text: Stair Climbing Set # Repetitions (reps) 1 Comments Stair Climbing Comments attempted stair climbing using SPC and one rail but pt unable to complete. instructed pt to sit down and pt c/o lightheadedness. stated that he is feeling better after a few minutes rest and attempted stair climbing using FWW requiring max A x 1-2 and max cues with (+) R knee buckling. c/o increase lightheadedness after climbing up and pt then instructed to get down the stairs using bilateral rails and completed with min A. pt. wheeled back to room. nurse and NAC assisted. required max A with transfers and max A for bed mobility. attempted to get BP in sitting but unable to get a reading. BP gotten in supine: 113/50. BP sitting on EOB initial part of tx session: 159/79 after ambulation in room: sitting on EOB: 139/75 supine in bed after stair climbin/50 M5 PT-IP Objective Assessments Start: 09/06/17 16:14 Freq: NEEDED Status: Active Protocol: Document 09/06/17 16:15 AB (Rec: 09/06/17 16:32 AB [id number]) Orientation Orientation/Cognition Level of Alertness Alert Orientation Name Age Birthday Month Date Year Day of Week Place Situation Gross Range of Motion Lower Extremity ROM Assessment Right Impaired Strength Lower Extremity Strength Assessment Bilaterally Impaired Comments Strength Comments RLE weaker than LLE RLE 3+/5 LLE 4-/5 Sensation Assessment Sensation Sensation Description Numbness Comments Sensation Comments still c/o numbness on buttocks M6 PT-IP Treatment Start: 09/06/17 16:14 Freq: NEEDED Status: Active Protocol: Document 09/07/17 17:11 AB (Rec: 09/07/17 17:19 AB [id number]) Physical Therapy Treatment Exercises Exercises Heel Slides Education Education Provided Precautions Weight Bearing Status Post-Op Packet Safety Other Treatments Other Treatment Performed educated pt and family regarding equipement needs ( toilet safety rail or 3 in one commode) educated on HEP M7 PT-IP Assessment and Plan Start: 09/06/17 16:14 Freq: NEEDED Status: Active Protocol: Document 09/08/17 11:33 AB (Rec: 09/08/17 11:47 AB [id number]) PT Summary Assessment and Plan Potential Rehabilitation Potential Fair Summary Impairments Pain ROM Strength Balance Bed Mobility Transfers Gait Activity Tolerance Progress Towards Goals Slow Progress due to Medical Issues Assessment Summary pt c/o to have lightheadedness with mobility and unable to complete stairs safely. informed family regarding options for stair climbing assist. Goals Bed Mobility Goal Standby Assistance Transfer Goal Standby Assistance Gait Goal Standby Assistance Gait Distance 100 Other Goals up/down 2 steps using FWW SBA Days to Meet Goals 3 Frequency of Treatment Frequency Of Treatment Twice a Day Treatment Plan Physical Therapy Treatment Plan Bed Mobility Training Transfer Training Gait Training Therapeutic Exercise Balance Retraining Post Op Education Discharge Planning Hot or Cold Pack Neuromuscular Re-ed Coordination Retraining Manual Therapy Other Recommendations and Next Treatment ambulation, stair training Focus Recommendations To Nursing Amount of Assist Needed 1 Person Assist Discharge Recommendations PT Discharge Recommendations Home with Assistance Outpatient PT
[2017-09-08 13:57] VITALS: BP 117/61; BP 125/95; BP 139/63; PULSE 67; PULSE 72; PULSE 75
--- NOTE | 2017-09-08 15:21 | PM.CN ---
History of Present Illness Date Patient Seen: 09/08/17 Time Patient Seen: 15:00 Chief complaint: [id number] RIGHT TOTAL KNEE ARTHROPLASTY Reason for consult: I was asked by ortho service to evaluate this patient after a syncope event Requesting provider: Aj Murdock Narrative: 61-year-old man who was electively admitted to [facility] 2 days ago for right total knee arthroplasty by Dr. Murdock. This morning when he was trying to climb stairs with physical therapy, he started feeling lightheaded. He was also noticed to be white in color. Subsequently he had a brief loss of consciousness after he was sat in the wheelchair on his way back to his room. He was noted to have orthostatic hypotension by the nurses. He is currently feeling fine at rest. He denies lightheadedness or dizziness. He is trying to drink adequate water for hydration. [facility] Medical History Arthritis (Acute) Diabetes (Acute) Eczema (Acute) GERD (gastroesophageal reflux disease) (Acute) Gout (Acute) HTN (hypertension) (Acute) History of fracture of left ankle (Acute) History of fracture of right ankle (Acute) Hyperlipidemia (Acute) Kidney disease, chronic, stage III (GFR 30-59 ml/min) (Acute) Seasonal allergies (Acute) Sleep apnea with use of continuous positive airway pressure (CPAP) (Acute) Surgical History History of arthroscopy of both knees (Acute) History of arthroscopy of left shoulder (Acute) History of vasectomy (Acute) Social History household members: spouse and children Smoking Status: Never smoker alcohol intake: current Comment: He is . He lives with his . He drinks about 1 beer a month. Denies cigarette smoking. Meds Home Medications Medication Instructions Recorded Confirmed Type aspirin [Aspir-81] 81 mg PO QAM 08/23/17 09/06/17 History atenolol 50 mg PO QAM 08/23/17 09/06/17 History atorvastatin 20 mg PO BEDTIME 08/23/17 09/06/17 History cetirizine [Zyrtec] 10 mg PO DAILY PRN 08/23/17 09/06/17 History fluticasone 1 spray INTRANASAL BEDTIME 08/23/17 09/06/17 History lisinopril 20 mg PO QAM 08/23/17 09/06/17 History metformin 500 mg PO BID 08/23/17 09/06/17 History ranitidine HCl 150 mg PO BID 08/23/17 09/06/17 History ascorbic acid (vitamin C) 1,000 units PO DAILY 09/06/17 09/06/17 History vitamin E 1,000 units PO DAILY 09/06/17 09/06/17 History Allergies Allergy/AdvReac Type Severity Reaction Status Date / Time codeine AdvReac Severe Nausea Verified 08/23/17 09:04 NSAIDS (Non-Steroidal AdvReac Severe Affects Verified 08/23/17 09:12 Anti-Inflamma Kidneys Review of Systems Constitutional Comments: No fever chills or sweats Cardiovascular Comments: Denies chest pain Respiratory Comments: No cough or shortness of breath Gastrointestinal Comments: Denies abdominal pain Genitourinary Comments: No dysuria Musculoskeletal Comments: No back pain Exam Vital Signs (past 8 hours): Vital Signs - 8 hr 09/08/17 08:11 09/08/17 13:57 Temperature 97.1 F L Pulse Rate 66 Pulse Rate [Orthostatic Lying] 67 Pulse Rate [Orthostatic Sitting] 75 Pulse Rate [Orthostatic Standing] 72 Respiratory Rate 16 Blood Pressure 133/74 H Blood Pressure [Orthostatic Lying] 139/63 H Blood Pressure [Orthostatic Sitting] 117/61 Blood Pressure [Orthostatic Standing] 125/95 H Pulse Oximetry 95 Pulse Oximetry 95 Oxygen Delivery Method Room Air Oxygen Flow Rate 0 Narrative Exam Narrative: GENERAL: Well-appearing, well-nourished and in no acute distress. HEENT: Head normocephalic, atraumatic. Eyes pupils equal round NECK: Supple, no JVD, CHEST: Breath sounds equal bilaterally, no wheezes rales or rhonchi. CARDIAC: Regular rate and rhythm without murmurs, rubs or gallops. ABDOMEN: Soft, nontender. Normoactive bowel sounds all 4 quadrants. No guarding or rebound. EXTREMITIES: Normal range of motion, no clubbing or edema. NEUROLOGICAL: Alert and oriented; Normal muscle strength. SKIN: Warm, dry, no petechiae, no rashes or lesions. Normal complexion Objective Labs Result Diagrams: 09/07/17 05:44 Assessment & Plan Plan: Assessment/Plan Narrative: 1. Syncope, likely secondary to a possible postural hypotension. He received 250 IV fluid bolus. He also started oral hydration. His resting blood pressure is normal. We will continue monitor. We will start him on telemetry monitoring to evaluate for possible arrhythmia. 2. Type 2 diabetes: His fingerstick glucose was in good range. Continue current dose of metformin 3. Hypertension: Blood pressure is in good range at rest. Continue lisinopril and atenolol. Continue monitor his blood pressure readings 4. Hyperlipidemia: Continue atorvastatin per outpatient dosing
--- NOTE | 2017-09-08 15:28 | P.CONS_ITS ---
History of Present Illness Date Patient Seen: 09/08/17 Time Patient Seen: 15:00 Chief complaint: [id number] RIGHT TOTAL KNEE ARTHROPLASTY Reason for consult: I was asked by ortho service to evaluate this patient after a syncope event Requesting provider: Aj Murdock Narrative: 61-year-old man who was electively admitted to [facility] 2 days ago for right total knee arthroplasty by Dr. Murdock. This morning when he was trying to climb stairs with physical therapy, he started feeling lightheaded. He was also noticed to be white in color. Subsequently he had a brief loss of consciousness after he was sat in the wheelchair on his way back to his room. He was noted to have orthostatic hypotension by the nurses. He is currently feeling fine at rest. He denies lightheadedness or dizziness. He is trying to drink adequate water for hydration. [facility] Medical History Arthritis (Acute) Diabetes (Acute) Eczema (Acute) GERD (gastroesophageal reflux disease) (Acute) Gout (Acute) HTN (hypertension) (Acute) History of fracture of left ankle (Acute) History of fracture of right ankle (Acute) Hyperlipidemia (Acute) Kidney disease, chronic, stage III (GFR 30-59 ml/min) (Acute) Seasonal allergies (Acute) Sleep apnea with use of continuous positive airway pressure (CPAP) (Acute) Surgical History History of arthroscopy of both knees (Acute) History of arthroscopy of left shoulder (Acute) History of vasectomy (Acute) Social History household members: spouse and children Smoking Status: Never smoker alcohol intake: current Comment: He is . He lives with his . He drinks about 1 beer a month. Denies cigarette smoking. Meds Home Medications Medication Instructions Recorded Confirmed Type aspirin [Aspir-81] 81 mg PO QAM 08/23/17 09/06/17 History atenolol 50 mg PO QAM 08/23/17 09/06/17 History atorvastatin 20 mg PO BEDTIME 08/23/17 09/06/17 History cetirizine [Zyrtec] 10 mg PO DAILY PRN 08/23/17 09/06/17 History fluticasone 1 spray INTRANASAL BEDTIME 08/23/17 09/06/17 History lisinopril 20 mg PO QAM 08/23/17 09/06/17 History metformin 500 mg PO BID 08/23/17 09/06/17 History ranitidine HCl 150 mg PO BID 08/23/17 09/06/17 History ascorbic acid (vitamin C) 1,000 units PO DAILY 09/06/17 09/06/17 History vitamin E 1,000 units PO DAILY 09/06/17 09/06/17 History Allergies Allergy/AdvReac Type Severity Reaction Status Date / Time codeine AdvReac Severe Nausea Verified 08/23/17 09:04 NSAIDS (Non-Steroidal AdvReac Severe Affects Verified 08/23/17 09:12 Anti-Inflamma Kidneys Review of Systems Constitutional Comments: No fever chills or sweats Cardiovascular Comments: Denies chest pain Respiratory Comments: No cough or shortness of breath Gastrointestinal Comments: Denies abdominal pain Genitourinary Comments: No dysuria Musculoskeletal Comments: No back pain Exam Vital Signs (past 8 hours): Vital Signs - 8 hr 3 09/08/17 08:11 09/08/17 13:57 Temperature 97.1 F L Pulse Rate 66 Pulse Rate [Orthostatic Lying] 67 Pulse Rate [Orthostatic Sitting] 75 Pulse Rate [Orthostatic Standing] 72 Respiratory Rate 16 Blood Pressure 133/74 H Blood Pressure [Orthostatic Lying] 139/63 H Blood Pressure [Orthostatic Sitting] 117/61 Blood Pressure [Orthostatic Standing] 125/95 H Pulse Oximetry 95 Pulse Oximetry 95 Oxygen Delivery Method Room Air Oxygen Flow Rate 0 Narrative Exam Narrative: GENERAL: Well-appearing, well-nourished and in no acute distress. HEENT: Head normocephalic, atraumatic. Eyes pupils equal round NECK: Supple, no JVD, CHEST: Breath sounds equal bilaterally, no wheezes rales or rhonchi. CARDIAC: Regular rate and rhythm without murmurs, rubs or gallops. ABDOMEN: Soft, nontender. Normoactive bowel sounds all 4 quadrants. No guarding or rebound. EXTREMITIES: Normal range of motion, no clubbing or edema. NEUROLOGICAL: Alert and oriented; Normal muscle strength. SKIN: Warm, dry, no petechiae, no rashes or lesions. Normal complexion Objective Labs Result Diagrams: 09/07/17 05:44 Assessment & Plan Plan: Assessment/Plan Narrative: 1. Syncope, likely secondary to a possible postural hypotension. He received 250 IV fluid bolus. He also started oral hydration. His resting blood pressure is normal. We will continue monitor. We will start him on telemetry monitoring to evaluate for possible arrhythmia. 2. Type 2 diabetes: His fingerstick glucose was in good range. Continue current dose of metformin 3. Hypertension: Blood pressure is in good range at rest. Continue lisinopril and atenolol. Continue monitor his blood pressure readings 4. Hyperlipidemia: Continue atorvastatin per outpatient dosing
[2017-09-08 16:01] VITALS: BP 130/62; PULSE 66; RESP 18; TEMP 36.5; O2SAT 98
--- NOTE | 2017-09-08 16:10 | PT.IPTN ---
Current Diagnoses Bilateral primary osteoarthritis of knee (09/06/17) Surgery Performed Operation Date: 09/06/17 07:45 Actual Procedures p Total Knee Arthroplasty(Right) - Aj Murdock MD Physical Therapy Treatment Note M2 PT-IP Current Condition Start: 09/06/17 16:14 Freq: NEEDED Status: Active Protocol: Document 09/06/17 16:15 AB (Rec: 09/06/17 16:32 AB [id number]) Physical Therapy Current Condition Current Condition Evaluation Date 09/06/17 Treatment Diagnosis s/p R TKA Onset Date 09/06/17 Weight Bearing Status Weight Bearing Status Weight Bear as Tolerated M3 PT-IP Subjective Start: 09/06/17 16:14 Freq: NEEDED Status: Active Protocol: Document 09/08/17 16:10 GGD (Rec: 09/08/17 16:38 GGD [id number]) Subjective Physical Therapy Visit Type Type Treatment Note Visit Start Time 15:25 Visit Stop Time 16:10 Total Visit Minutes 45 Number of POWER LINE LINEMAN Visits 1 Physical Therapy Visit Comments Patient Comments Pt states he is feeling better . Therapy Pain Assessment Pain When Pain Assessed At Rest Pain Present Pain Present Pain Reported Location Right Knee Intensity 4 Scale Used Numeric (1 - 10) Pain Management Techniques Apply Cold Timing of Activity with Medications M4 PT-IP Mobility and Gait Start: 09/06/17 16:14 Freq: NEEDED Status: Active Protocol: Document 09/08/17 16:10 GGD (Rec: 09/08/17 16:38 GGD [id number]) PT-Bed Mobility Assessment Supine to Sit Supine to Sit Standby Assistance PT-Transfer Assessment Sit to and From Stand Sit to and from Stand Standby Assistance Equipment Transfer Assistive Device Gait Belt Front Wheeled Walker Transfers Transfer Destination Chair Wheelchair Transfer Technique gait Transfer Ability Level of Assist Contact Guard Assistance Use of Upper Extremities Gait Assessment Gait Gait Assistance Required: Contact Guard Assist Distance (Feet) (feet) 60 Able to Maintain Weight Bearing Status Yes During Gait Assistive Devices Assistive Device Gait Belt Front Wheeled Walker Orthotic/Prosthetic Devices or Brace: Yes Gait Deviations General Gait Pattern Antalgic Decreased Stride Length Decreased Feet Clearance Factors Limiting Gait Function Factors Limiting Gait Function Decreased Activity Tolerance Decreased Strength Limited Range of Motion Pain Stair Climbing Assessment Evaluation Level of Assist On Stairs Contact Guard Assistance Devices Stair Climbing Assistive Devices Straight Cane Left Railing Technique/Endurance Stair Climbing Direction Ascend and Descend Stair Climbing Technique Step to Step Number of Steps Climbed 3 Query Text: Stair Climbing Set # Repetitions (reps) 1 Document 09/08/17 16:10 GGD (Rec: 09/08/17 16:38 GGD [id number]) Physical Therapy Treatment Exercises Exercises Ankle Pumps Gluteal Sets Quad Sets Heel Slides Seated Knee Flexion/Extension Education Education Provided Safety Other Treatments Other Treatment Performed Family training with stairs. M7 PT-IP Assessment and Plan Start: 09/06/17 16:14 Freq: NEEDED Status: Active Protocol: Document 09/08/17 16:10 GGD (Rec: 09/08/17 16:38 GGD [id number]) PT Summary Assessment and Plan Summary Assessment Summary Pt improved with mobility. No unsteadiness or LOB. Pt able to complete stairs with SPC. Frequency of Treatment Frequency Of Treatment Twice a Day Treatment Plan Other Recommendations and Next Treatment ambulation, stair training Focus Recommendations To Nursing Amount of Assist Needed 1 Person Assist Discharge Recommendations PT Discharge Recommendations Home with Assistance Outpatient PT
--- NOTE | 2017-09-08 19:27 | PC.NURSE ---
Addendum entered by Dipika Lebron R.N. 09/08/17 20:52: DISCHARGE per XIOMARA Menon, not talent acquisition lead tonight and to call MD. Verified with Dr. Larson regarding d/c today, per , okay to d/c as hospitalist cleared pt. d/c instructions reviewed with pt and family. d/c off unit at approximately 2040 via wheelchair, accompnied by this RN. Original Note: SHIFT NOTE Received pt with PT at bedside. per PT, pt did fantastic during the afternoon session and is clear for D/C from their perspective. PT also reported that XIOMARA Menon will be by later in the afternoon for rounds and to communicate pt's desire to d/c today. no PA at bedside for several hours. attempted to call at approximately 1830 via cell number listed in directory, no answer. updated pt and family. pt's wants pt to stay in hospital, pt and pt's daughter would still like to d/c today. awaiting PA.
[2017-09-08 19:30] VITALS: BP 143/72; PULSE 64; RESP 18; TEMP 36.7; O2SAT 99
[2017-09-08] MEDS: FLUTICASONE 120 SPRAY/16 GM SPRAY.SUSP NASAL (20:25)
[2017-09-08] MEDS: ATORVASTATIN 20 MG TABLET PO (20:25)
== END 2017-09-08 20:40 | disposition home or self-care (01) | DRG 470 ==
PROVIDERS: Admitting Provider Orthopaedic Surgery; Family Provider Internal Medicine; PCP Internal Medicine; Visit Provider Orthopaedic Surgery
PROC: 0SRC0JZ Replacement of Right Knee Joint with Synthetic Substitute, Open Approach (ICD-10-PCS; CPT 27447; principal; 2017-09-06 07:45)
DX: M17.11 Unilateral primary osteoarthritis, right knee (principal); R55 Syncope and collapse; G47.33 Obstructive sleep apnea (adult) (pediatric); I12.9 Hypertensive chronic kidney disease with stage 1 through stage 4 chronic kidney disease, or unspecified chronic kidney disease; E11.22 Type 2 diabetes mellitus with diabetic chronic kidney disease; N18.3 Chronic kidney disease, stage 3 (moderate); Z79.84 Long term (current) use of oral hypoglycemic drugs
CPT/HCPCS: 36415; 73560; 82962; 85014; 85018; 94660; 94762; 97110; 97116; 97162; 97530; C1776; C9290; J0690; J2250; J2270; J2405; J2704; J3010